=== PATIENT | male | born 1960 | race Caucasian/White ===

== ENCOUNTER 2016-11-06 19:53 | Emergency (ER) | payer OTHER ==
[2016-11-06] MEDS ORDERED: IBUPROFEN 600 MG TABLET ONE (20:42)
[2016-11-06] MEDS ORDERED: METHOCARBAMOL 750 MG TABLET ONE (20:43)
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
== END 2016-11-06 22:09 | disposition home or self-care (01) ==
LOC: ED 19:53
DX: M54.5 Low back pain (principal); I10 Essential (primary) hypertension; E11.9 Type 2 diabetes mellitus without complications; V53.5XXA Driver of pick-up truck or van injured in collision with car, pick-up truck or van in traffic accident, initial encounter; Y92.410 Unspecified street and highway as the place of occurrence of the external cause